=== PATIENT | female | born 1965 | race Two or more races ===

== ENCOUNTER → 2016-10-07 | Outpatient (CLI) | payer MEDICAID ==
--- NOTE | 2016-10-08 10:05 | MR ---
MRI Lower Extremity, Left Knee History: Left knee pain. Acute pain. ICD 10 code M25.582. Technique: MRI was performed of the left knee using a 1.5 [employer] MRI system. Sagittal, coronal, and ax ial imaging was obtained with standard imaging sequences. Findings: General: Minimal suprapatellar joint effusion. Subcortical cyst is seen in the posterior tibial plate au beneath the lateral tibial spine. Mild subarticular bone marrow edema is seen in the medial tibial plateau. No evidence for a fracture line. Ligaments and tendons: Anterior cruciate and posterior cruciate ligaments are intact. Medial collater al ligament is unremarkable. There is mild lobulated fluid along the distal semimembranosus tendon majano ggesting a ganglion. Iliotibial band, fibular collateral ligament, and biceps femoris are unremarkabl e. Popliteus muscle and tendon are intact. Menisci and cartilage: There is abnormal signal intensity throughout the medial meniscus extending to the inferior articular surface. This is more severe in the posterior horn and body. The body is extr uded medially. There is cartilage signal abnormality and thinning in the medial compartment with full -thickness or near full-thickness cartilage loss in the central weightbearing portion. Parameniscal cyst is seen extending from the region of the meniscal root of the posterior horn medial meniscus posterior to the posterior cruciate ligament measuring 12 mm. No evidence for lateral meniscal tear. No significant cartilage attenuation in the lateral compartmen t. Extensor mechanism: Cartilage signal abnormality is seen in the patella with mild thinning. Quadricep s tendon and patellar tendon are unremarkable. There is mild lateral subluxation of the patella. Impression: 1. Undersurface tear throughout the medial meniscus more severe in the posterior horn and body with e xtrusion of the body medially. Parameniscal cyst. Grade 3 to early grade 4 articular cartilage diseas e in the central weightbearing portion of the medial compartment. Reactive subarticular bone marrow e jennyfer and cystic change in the medial tibial plateau. 2. Probable ganglion along the distal semimembranosus tendon. 3. 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
== END ==
LOC: FIMAGING 16:29
PROVIDERS: ATTEND Radiology Diagnostic Radiology
DX: S83.232A Complex tear of medial meniscus, current injury, left knee, initial encounter (principal); M22.42 Chondromalacia patellae, left knee

== ENCOUNTER → 2016-10-14 | Outpatient (CLI) | payer MEDICAID ==
--- NOTE | 2016-10-15 14:01 | MR ---
MRI Upper Extremity, Right Wrist History: Right wrist pain. ICD-10 code: M25.531. Technique: MRI is performed of the right wrist using a 3 [employer] MRI system. Sagittal, coronal, and axi al imaging was obtained with standard imaging sequences. Findings: No significant bone marrow abnormality is visualized. No evidence for occult fracture. Ther e is mild ulnar negative variance of 2.5 mm. There is a prominent volar capsular recess versus gangli on volar to the radial styloid measuring 11 x 4 mm. Scapholunate and lunatotriquetral ligaments are intact and unremarkable. Abnormal signal intensity is seen in the articular disk of the ulnar sided articular surface and mild irregularity at the periphery indicating partial tear. Mild adjacent edema. Mild abnormal signal intensity is seen in the extensor carpi ulnaris tendon at the level of the ulnar styloid. The other visualized tendons are unremarkable. Impression: 1. Partial tear of the articular disk and periphery of the triangular fibrocartilage complex. 2. Mild tendinopathy extensor carpi ulnaris tendon.
== END ==
LOC: FIMAGING 19:06
DX: M24.131 Other articular cartilage disorders, right wrist (principal)

== ENCOUNTER → 2017-05-01 | Outpatient (CLI) | payer MEDICAID ==
[~2017-05-01] MED LIST: GADOBUTROL 10 ML VIAL IVP ONE; IOPAMIDOL (ISOVUE 370) 100 ML BTL IV ONE
== END ==
LOC: FIMAGING 09:47
PROVIDERS: ATTEND Psychiatry & Neurology Neurology
DX: R53.1 Weakness (principal)
CPT/HCPCS: A9585; Q9967